=== PATIENT | male | born 1950 | race Caucasian/White ===

== ENCOUNTER → 2021-01-26 | Outpatient (CLI) | payer MEDICARE ==
--- NOTE | 2021-01-26 09:46 | RAD ---
Exam performed: Right upper extremity venous Doppler. Indication:Reason: RT WRIST SWELLING / Spl. Instructions: / History: Date of Service: 01/26/2021 9:16 AM. Comparison:None available. Discussion: Multiple longitudinal and transverse high resolution real-time images of the venous system of the rig ht upper extremity were obtained with color and Doppler sampling. The jugular, subclavian, axillary, brachial, cephalic, basilic, radial and ulnar veins are all patent and demonstrate normal flow and, where appropriate, compressibility. Impression: Normal color duplex ultrasound of the venous system of the [ right ] upper extremity. Electronically signed by: Tarah Beck MD (01/26/2021 9:43 AM) [facility]
[2021-01-26 10:42] LABS: BASO % 1 % (0-3); EOS # 0.1 x10^3/uL (0.0-0.7); EOS % 2 % (0-3); HEMOGLOBIN 13.6 g/dL (13.0-17.5); LYMPH # 1.7 x10^3/uL (1.0-4.8); LYMPH % 31 % (24-48); MEAN CORPUSCULAR HEMOGLOBIN 32 pg (25-35); MEAN CORPUSCULAR HGB CONC 33 g/dL (31-37); MEAN CORPUSCULAR VOLUME 95 fL (79-100); MONO # 0.5 x10^3/uL (0.0-1.1); MONO % 9 % (0-9); NEUT # 3.2 x10^3uL (1.8-7.7); NEUT % 58 % (31-73); PLATELET COUNT 145 x10^3/uL (140-400); RED BLOOD COUNT 4.33 x10^6/uL (4.30-5.70); RED CELL DISTRIBUTION WIDTH 14.4 % (11.5-14.5); WHITE BLOOD COUNT 5.5 x10^3/uL (4.0-11.0)
[2021-01-26 10:59] LABS: ALBUMIN/GLOBULIN RATIO 1.4 (1.0-1.7); C REACTIVE PROTEIN 16.9 mg/L (0-3.3); CALCIUM 8.8 mg/dL (8.5-10.1); GFR 74.3; POTASSIUM 4.2 mmol/L (3.5-5.1); TOTAL BILIRUBIN 0.5 mg/dL (0.2-1.0); TOTAL PROTEIN 6.9 g/dL (6.4-8.2); URIC ACID 4.5 mg/dL (3.5-7.2)
== END ==
LOC: US 09:09
PROVIDERS: ATTEND Family Medicine
DX: R22.31 Localized swelling, mass and lump, right upper limb (principal)
CPT/HCPCS: 36415; 80053; 84550; 85025; 86140; 93971